=== PATIENT | female | born 1950 | race Caucasian/White ===

== ENCOUNTER 2016-09-20 12:29 | Inpatient (IN) | payer OTHER ==
[~2016-09-20] VITALS: Ht 172.7 cm; Wt 82.2 kg
[~2016-09-20 12:29] MED LIST: ATIVAN0.5 MG GT; ATROVENT 00.5 MG/2.5 IH; BUSPAR5 MG GT; CHILDREN'S ASPI81 M1 GT; CHILDREN'S160 MG/23 GT; COUMADIN,JANTOVE2 MG PO; COUMADIN4 MG PO; CYMBALTA30 MG GT; DIAMOX250 MG GT; DILAUDID2 MG PO; DILTIAZEM 24HR180 M1 PO; DULCOLAX10 MG PR; DUONEB 2.5-0.5 M3 ML AEROSOL; FERROUS SU220 MG/53 GT; FLEET ENEMA-AD118 ML PR; FLORANEX CHE1 TABLET GT; K-SOL20 MEQ/15 GT; KEPPRA100 MG/1 M GT; LANOXIN GT; LANOXIN,DIGIT0.25 MG PO; LASIX40 MG GT; LASIX40 MG PO; LEVAQUIN750 MG PO; LOPRESSOR25 MG GT; Lasix GT; METOPROLOL SUCC25 MG PO; MILK OF MAGN GT; NEURONTIN50 MG/ML GT; NORCO 5/3251 TABLET GT; PAROXETINE HCL40 MG PO; PAXIL40 MG GT; PERIDEX1 ML MM; PRILOSEC20 MG PO; PROMETHAZINE HC25 M1 GT; PULMICORT0.5 MG/21 IH; REQUIP0.25 MG GT; SENNA8.6 MG GT; TRAZODONE HCL50 MG GT; ZANTAC150 MG GT; ZOCOR20 MG GT
[2016-09-20 13:55] LABS: HEMATOCRIT 44.9 % (36.0-46.0); MCH 26.6 PG (29.0-34.0); MCHC 30.7 G/DL (30.0-36.0); MCV 86.7 FL (83-99); MEAN PLAT.VOLUME 9.6 uM^3 (9.5-12.4); PLATELET COUNT 342 K/uL (156-360); RBC DIS.WIDTH-CV 15.7 % (11.8-14.6); RBC DIS.WIDTH-SD 49.8 % (39-53); RED BLOOD COUNT 5.18 M/uL (3.80-5.20); WHITE BLOOD COUNT 7.6 K/uL (4.1-10.2)
[2016-09-20 14:00] LABS: INTER. NORMALIZED RATIO 1.2; PROTHROMBIN TIME 12.6 (9.2-11.2)
[2016-09-20 14:08] LABS: ANION GAP 4 MEQ/L (2-14); CHLORIDE 97 MEQ/L (99-109); POTASSIUM 4.1 MEQ/L (3.7-5.4); SAMPLE HEMOLYSIS CHECK 0; SAMPLE ICTERIC CHECK 0; SAMPLE LIPEMIA CHECK 0; SODIUM 136 MEQ/L (136-147)
[2016-09-20 14:13] LABS: GFR ESTIMATE (CALCULATED) > 59 mL/min/; GLUCOSE 116 mg/dL (70-99); UREA NITROGEN (BUN) 9 mg/dL (9-23)
[2016-09-20 14:17] LABS: TROP-I INTERPRETATION NEGATIVE; TROPONIN-I 0.01 ng/mL (0.0-0.30)
[2016-09-20] MEDS ORDERED: METOPROLOL TART25 MG PO (17:09)
[2016-09-20] MEDS ORDERED: PROAIR HFA8.5 GM IH (17:09)
[2016-09-20] MEDS ORDERED: ALBUTEROL2.5 MG/3 M IH (17:09)
[2016-09-20] MEDS ORDERED: LASIX20 MG PO (17:10)
[2016-09-20] MEDS ORDERED: BUSPAR5 MG PO (17:10)
[2016-09-20] MEDS ORDERED: DILTIAZEM 24HR180 MG PO (17:10)
[2016-09-20] MEDS ORDERED: K-DUR20 MEQ PO (17:11)
[2016-09-20] MEDS ORDERED: LO-DOSE ASPIRIN81 M1 PO (17:11)
[2016-09-20] MEDS ORDERED: PAROXETINE HCL10 MG PO (17:12)
[2016-09-20] MEDS ORDERED: PAXIL30 MG PO (17:12)
[2016-09-20] MEDS ORDERED: RANITIDINE HCL150 MG PO (17:13)
[2016-09-20] MEDS ORDERED: ZOCOR20 MG PO (17:13)
[2016-09-20] MEDS ORDERED: TYLENOL EXTRA500 MG PO (17:14)
[2016-09-21 06:33] LABS: EOSINOPHIL (%) 1.5 % (0-5); EOSINOPHIL COUNT 0.2 K/uL (0-0.3); HEMATOCRIT 43.2 % (36.0-46.0); IMMATURE GRANULOCYTE (%) 0.2 % (0.0-0.7); LYMPHOCYTE COUNT 1.2 K/uL (1.0-2.8); MCH 27.2 PG (29.0-34.0); MCHC 29.9 G/DL (30.0-36.0); MEAN PLAT.VOLUME 10.5 uM^3 (9.5-12.4); MONOCYTE (%) 12.5 % (3-12); MONOCYTE COUNT 1.2 K/uL (0-0.8); NEUTROPHIL (%) 73.2 % (45-76); NEUTROPHIL COUNT 7.1 K/uL (1.8-6.4); PLATELET COUNT 304 K/uL (156-360); RED BLOOD COUNT 4.75 M/uL (3.80-5.20); WHITE BLOOD COUNT 9.7 K/uL (4.1-10.2)
[2016-09-21 06:34] LABS: MCV 90.9 FL (83-99)
[2016-09-21 06:54] LABS: ANION GAP 5 MEQ/L (2-14); CHLORIDE 98 MEQ/L (99-109); GFR ESTIMATE (CALCULATED) > 59 mL/min/; GLUCOSE 106 mg/dL (70-99); POTASSIUM 3.9 MEQ/L (3.7-5.4); SAMPLE HEMOLYSIS CHECK 0; SAMPLE ICTERIC CHECK 0; SAMPLE LIPEMIA CHECK 0; SODIUM 138 MEQ/L (136-147); UREA NITROGEN (BUN) 11 mg/dL (9-23)
[2016-09-21 07:25] VITALS: BP 130/64
[2016-09-21 11:09] LABS: METH RESISTANT S AUREUS PCR POSITIVE (NEGATIVE)
[2016-09-21 11:10] LABS: PROBE CHECK PASS
[2016-09-21 12:13] LABS: POINT-OF-CARE METER ID UU13113831
[2016-09-21 12:24] VITALS: BP 109/62
[2016-09-21 15:43] VITALS: BP 116/61
[2016-09-21 17:14] LABS: POINT-OF-CARE METER ID UU14162513
[2016-09-21 18:06] LABS: BICARBONATE 38.9 mEq/L (22-26); CARBOXY HGB 3.6 % (0-5); METHEMOGLOBIN 1.5 % (0-1.5); PO2 66 mm Hg (80-100)
[2016-09-21 19:01] LABS: COMMENTS - BLOOD GASES A+C+; DEVICE NCH; O2 FLOW 8 L/MIN; PCO2 81 mm Hg (35-45); SITE RR; TOTAL RESP RATE 8 resp/min; pH 7.29 (7.35-7.45)
[2016-09-21 20:22] VITALS: BP 104/62
[2016-09-21 20:47] LABS: BASE EXCESS 11.2 mEq/L (-3 to +3); BICARBONATE 39.7 mEq/L (22-26); CARBOXY HGB 3.3 % (0-5); METHEMOGLOBIN 1.5 % (0-1.5); pH 7.35 (7.35-7.45)
[2016-09-21 20:49] LABS: COMMENTS - BLOOD GASES A+C+; CONTINUOUS POS AIRWAY PRESSURE 10 cm H2O; DEVICE BIPAP; O2 FLOW 3 L/MIN; PCO2 72 mm Hg (35-45); PO2 49 mm Hg (80-100); PRES. SUPPORT 15 CM/H2O; SITE RR
[2016-09-21 21:29] LABS: POINT-OF-CARE METER ID UU13113831
[2016-09-21 22:24] VITALS: BP 123/68
[2016-09-22] VITALS (18 sets, daily range): BP systolic 91–135; BP diastolic 48–77
[2016-09-22 00:13] LABS: BASE EXCESS 11.2 mEq/L (-3 to +3); BICARBONATE 39.7 mEq/L (22-26); CARBOXY HGB 3.6 % (0-5); COMMENTS - BLOOD GASES C+A+; CONTINUOUS POS AIRWAY PRESSURE 10 cm H2O; DEVICE BIPAP; METHEMOGLOBIN 1.5 % (0-1.5); O2 FLOW 4 L/MIN; PCO2 72 mm Hg (35-45); PO2 60 mm Hg (80-100); PRES. SUPPORT 15 CM/H2O; SITE RB; TOTAL RESP RATE 22 resp/min; pH 7.35 (7.35-7.45)
[2016-09-22 00:18] LABS: METH RESISTANT S AUREUS PCR POSITIVE (NEGATIVE)
[2016-09-22 00:20] LABS: PROBE CHECK PASS
[2016-09-22 00:42] LABS: CHLORIDE 101 mEq/L (99-109); POTASSIUM 3.9 mEq/L (3.7-5.4); SODIUM 142 mEq/L (136-147)
[2016-09-22 00:44] LABS: GLUCOSE 110 mg/dL (70-99)
[2016-09-22 00:45] LABS: ANION GAP 7 MEQ/L (2-14)
[2016-09-22 00:48] LABS: GFR ESTIMATE (CALCULATED) > 59 mL/min/; UREA NITROGEN (BUN) 10 mg/dL (9-23)
[2016-09-22 05:38] LABS: BASE EXCESS 11.8 mEq/L (-3 to +3); BICARBONATE 41.2 mEq/L (22-26); CARBOXY HGB 3.5 % (0-5); COMMENTS - BLOOD GASES C+; DEVICE NCHH; FI02 45 %; METHEMOGLOBIN 1.4 % (0-1.5); O2 FLOW 40 L/MIN; PCO2 80 mm Hg (35-45); PO2 67 mm Hg (80-100); SITE RB; pH 7.32 (7.35-7.45)
[2016-09-22 10:18] LABS: ANION GAP 9 MEQ/L (2-14); CHLORIDE 97 MEQ/L (99-109); POTASSIUM 3.8 MEQ/L (3.7-5.4); SAMPLE HEMOLYSIS CHECK 0; SAMPLE ICTERIC CHECK 0; SAMPLE LIPEMIA CHECK 0; SODIUM 142 MEQ/L (136-147)
[2016-09-22 10:24] LABS: GFR ESTIMATE (CALCULATED) > 59 mL/min/; GLUCOSE 109 mg/dL (70-99); UREA NITROGEN (BUN) 10 mg/dL (9-23)
[2016-09-22 11:01] LABS: EOSINOPHIL (%) 0.6 % (0-5); EOSINOPHIL COUNT 0.1 K/uL (0-0.3); HEMATOCRIT 43.1 % (36.0-46.0); IMMATURE GRANULOCYTE (%) 0.2 % (0.0-0.7); LYMPHOCYTE COUNT 0.9 K/uL (1.0-2.8); MCH 26.7 PG (29.0-34.0); MCHC 29.2 G/DL (30.0-36.0); MCV 91.3 FL (83-99); MEAN PLAT.VOLUME 10.1 uM^3 (9.5-12.4); MONOCYTE (%) 12.2 % (3-12); NEUTROPHIL (%) 75.7 % (45-76); NEUTROPHIL COUNT 6.3 K/uL (1.8-6.4); PLATELET COUNT 295 K/uL (156-360); RBC DIS.WIDTH-CV 15.9 % (11.8-14.6); RBC DIS.WIDTH-SD 53.4 % (39-53); RED BLOOD COUNT 4.72 M/uL (3.80-5.20); WHITE BLOOD COUNT 8.4 K/uL (4.1-10.2)
[2016-09-22 11:10] LABS: MAGNESIUM 1.8 mg/dl (1.3-2.7)
[2016-09-22 12:30] LABS: BASE EXCESS 15.8 mEq/L (-3 to +3); BICARBONATE 45.1 mEq/L (22-26); CARBOXY HGB 3.1 % (0-5); METHEMOGLOBIN 1.3 % (0-1.5); PCO2 78 mm Hg (35-45); pH 7.37 (7.35-7.45)
[2016-09-22 12:31] LABS: COMMENTS - BLOOD GASES C+; DEVICE 840 MASK; FI02 50 %; MODE SPONT NIPPV; PO2 89 mm Hg (80-100); PRES. SUPPORT 16 CM/H2O; SITE RB; TOTAL RESP RATE 24 resp/min
[2016-09-22 12:32] LABS: CONTINUOUS POS AIRWAY PRESSURE 10 cm H2O
[2016-09-22 13:42] LABS: POINT-OF-CARE METER ID UU13113803
[2016-09-22 18:13] LABS: POINT-OF-CARE METER ID UU13113803
[2016-09-22 20:46] LABS: BASE EXCESS 15.5 mEq/L (-3 to +3); BICARBONATE 44.5 mEq/L (22-26); CARBOXY HGB 2.2 % (0-5); COMMENTS - BLOOD GASES A+C+; DEVICE HHFNC; FI02 80 %; METHEMOGLOBIN 1.4 % (0-1.5); O2 FLOW 40 L/MIN; PCO2 77 mm Hg (35-45); PO2 150 mm Hg (80-100); SITE RR; TOTAL RESP RATE 21 resp/min; pH 7.37 (7.35-7.45)
[2016-09-23] VITALS (17 sets, daily range): BP systolic 0–140; BP diastolic 0–79
[2016-09-23 00:39] LABS: POINT-OF-CARE METER ID UU13113803
[2016-09-23 05:13] LABS: POINT-OF-CARE METER ID UU13113803
[2016-09-23 05:38] LABS: EOSINOPHIL (%) 0 % (0-5); HEMATOCRIT 41.7 % (36.0-46.0); IMMATURE GRANULOCYTE (%) 0.1 % (0.0-0.7); LYMPHOCYTE COUNT 0.5 K/uL (1.0-2.8); MCH 26.9 PG (29.0-34.0); MCHC 29.7 G/DL (30.0-36.0); MCV 90.5 FL (83-99); MEAN PLAT.VOLUME 10.6 uM^3 (9.5-12.4); MONOCYTE COUNT 0.3 K/uL (0-0.8); NEUTROPHIL (%) 88.5 % (45-76); NEUTROPHIL COUNT 6.4 K/uL (1.8-6.4); PLATELET COUNT 315 K/uL (156-360); RBC DIS.WIDTH-CV 15.9 % (11.8-14.6); RBC DIS.WIDTH-SD 52.1 % (39-53); RED BLOOD COUNT 4.61 M/uL (3.80-5.20); WHITE BLOOD COUNT 7.3 K/uL (4.1-10.2)
[2016-09-23 06:11] LABS: ANION GAP 7 MEQ/L (2-14); CHLORIDE 93 MEQ/L (99-109); GFR ESTIMATE (CALCULATED) > 59 mL/min/; GLUCOSE 152 mg/dL (70-99); POTASSIUM 4.1 MEQ/L (3.7-5.4); SAMPLE HEMOLYSIS CHECK 0; SAMPLE ICTERIC CHECK 0; SAMPLE LIPEMIA CHECK 0; SODIUM 140 MEQ/L (136-147)
[2016-09-23 06:23] LABS: UREA NITROGEN (BUN) 21 mg/dL (9-23)
[2016-09-23 10:40] LABS: MAGNESIUM 2.3 mg/dl (1.3-2.7)
[2016-09-23 12:43] LABS: POINT-OF-CARE METER ID UU14162636
[2016-09-23 17:43] LABS: POINT-OF-CARE METER ID UU13113803
[2016-09-24] VITALS (11 sets, daily range): BP systolic 103–144; BP diastolic 58–78
[2016-09-24 00:48] LABS: POINT-OF-CARE METER ID UU13113803
[2016-09-24 05:21] LABS: POINT-OF-CARE METER ID UU13113731
[2016-09-25] VITALS (12 sets, daily range): BP systolic 107–140; BP diastolic 60–74
[2016-09-25 05:44] LABS: HEMATOCRIT 42.2 % (36.0-46.0); MCH 27.2 PG (29.0-34.0); MCHC 29.6 G/DL (30.0-36.0); MCV 91.9 FL (83-99); MEAN PLAT.VOLUME 10.6 uM^3 (9.5-12.4); PLATELET COUNT 272 K/uL (156-360); RBC DIS.WIDTH-CV 16.1 % (11.8-14.6); RBC DIS.WIDTH-SD 53.7 % (39-53); RED BLOOD COUNT 4.59 M/uL (3.80-5.20); WHITE BLOOD COUNT 9.1 K/uL (4.1-10.2)
[2016-09-25 06:04] LABS: EOSINOPHIL (%) 0 % (0-5); IMMATURE GRANULOCYTE (%) 0.2 % (0.0-0.7); LYMPHOCYTE COUNT 0.6 K/uL (1.0-2.8); MONOCYTE (%) 2.6 % (3-12); MONOCYTE COUNT 0.2 K/uL (0-0.8); NEUTROPHIL (%) 90.6 % (45-76); NEUTROPHIL COUNT 8.3 K/uL (1.8-6.4)
[2016-09-25 06:26] LABS: ANION GAP ND MEQ/L (2-14); CHLORIDE 93 MEQ/L (99-109); GFR ESTIMATE (CALCULATED) > 59 mL/min/; SAMPLE HEMOLYSIS CHECK 0; SAMPLE ICTERIC CHECK 0; SAMPLE LIPEMIA CHECK 0; SODIUM 143 MEQ/L (136-147)
[2016-09-25 06:27] LABS: CARBON DIOXIDE (BICARBONATE) > 40.0 MEQ/L (20-31); GLUCOSE 253 mg/dL (70-99); UREA NITROGEN (BUN) 33 mg/dL (9-23)
[2016-09-25 08:26] LABS: BASE EXCESS 23.3 mEq/L (-3 to +3); BICARBONATE 52.1 mEq/L (22-26); CARBOXY HGB 2.3 % (0-5); COMMENTS - BLOOD GASES NEG A+C+; DEVICE HFNC; METHEMOGLOBIN 1.3 % (0-1.5); O2 FLOW 6 L/MIN; PCO2 75 mm Hg (35-45); PO2 77 mm Hg (80-100); SITE LR; pH 7.45 (7.35-7.45)
[2016-09-25 08:27] LABS: TOTAL RESP RATE 18 resp/min
[2016-09-25 11:31] LABS: POINT-OF-CARE METER ID UU13113803
[2016-09-25 16:42] LABS: POINT-OF-CARE METER ID UU13113803
[2016-09-25 23:32] LABS: POINT-OF-CARE USER ID PHATLC
[2016-09-26] VITALS (7 sets, daily range): BP systolic 113–134; BP diastolic 61–80
[2016-09-26 07:36] LABS: ANION GAP ND MEQ/L (2-14); CHLORIDE 91 MEQ/L (99-109); GFR ESTIMATE (CALCULATED) > 59 mL/min/; GLUCOSE 165 mg/dL (70-99); POTASSIUM 3.7 MEQ/L (3.7-5.4); SAMPLE HEMOLYSIS CHECK 0; SAMPLE ICTERIC CHECK 0; SAMPLE LIPEMIA CHECK 0; SODIUM 142 MEQ/L (136-147); UREA NITROGEN (BUN) 30 mg/dL (9-23)
[2016-09-26 07:38] LABS: CARBON DIOXIDE (BICARBONATE) > 40.0 MEQ/L (20-31)
[2016-09-26 07:47] LABS: EOSINOPHIL (%) 0 % (0-5); HEMATOCRIT 43.4 % (36.0-46.0); IMMATURE GRANULOCYTE (%) 0.1 % (0.0-0.7); LYMPHOCYTE COUNT 0.6 K/uL (1.0-2.8); MCH 27.2 PG (29.0-34.0); MCHC 29.7 G/DL (30.0-36.0); MCV 91.6 FL (83-99); MEAN PLAT.VOLUME 10.8 uM^3 (9.5-12.4); MONOCYTE (%) 7.6 % (3-12); MONOCYTE COUNT 0.7 K/uL (0-0.8); NEUTROPHIL (%) 85.7 % (45-76); NEUTROPHIL COUNT 7.5 K/uL (1.8-6.4); PLATELET COUNT 241 K/uL (156-360); RBC DIS.WIDTH-CV 15.9 % (11.8-14.6); RBC DIS.WIDTH-SD 52.9 % (39-53); RED BLOOD COUNT 4.74 M/uL (3.80-5.20); WHITE BLOOD COUNT 8.7 K/uL (4.1-10.2)
[2016-09-26 15:45] LABS: POINT-OF-CARE METER ID UU13113698
[2016-09-27] VITALS (7 sets, daily range): BP systolic 114–148; BP diastolic 64–84
[2016-09-27 07:34] LABS: ALKALINE PHOSPHATASE 103 IU/L (3-129); ANION GAP ND MEQ/L (2-14); CHLORIDE 90 MEQ/L (99-109); GFR ESTIMATE (CALCULATED) > 59 mL/min/; GLUCOSE 127 mg/dL (70-99); POTASSIUM 3.9 MEQ/L (3.7-5.4); SAMPLE HEMOLYSIS CHECK 0; SAMPLE ICTERIC CHECK 0; SAMPLE LIPEMIA CHECK 0; SODIUM 140 MEQ/L (136-147); TOTAL BILIRUBIN 1.1 MG/DL (0.0-1.0); UREA NITROGEN (BUN) 25 mg/dL (9-23)
[2016-09-27 07:35] LABS: CARBON DIOXIDE (BICARBONATE) > 40.0 MEQ/L (20-31); EOSINOPHIL (%) 0.1 % (0-5); HEMATOCRIT 44.9 % (36.0-46.0); IMMATURE GRANULOCYTE (%) 0.2 % (0.0-0.7); LYMPHOCYTE COUNT 1.9 K/uL (1.0-2.8); MCH 26.4 PG (29.0-34.0); MCHC 29.2 G/DL (30.0-36.0); MCV 90.3 FL (83-99); MEAN PLAT.VOLUME 10.6 uM^3 (9.5-12.4); MONOCYTE (%) 4.8 % (3-12); MONOCYTE COUNT 0.6 K/uL (0-0.8); NEUTROPHIL (%) 78.6 % (45-76); NEUTROPHIL COUNT 9.1 K/uL (1.8-6.4); PLATELET COUNT 252 K/uL (156-360); RBC DIS.WIDTH-CV 15.8 % (11.8-14.6); RED BLOOD COUNT 4.97 M/uL (3.80-5.20)
[2016-09-27 07:38] LABS: WHITE BLOOD COUNT 11.6 K/uL (4.1-10.2)
[2016-09-27 08:08] LABS: POINT-OF-CARE METER ID UU13113698
[2016-09-27 11:42] LABS: POINT-OF-CARE METER ID UU13113781
[2016-09-27 16:21] LABS: POINT-OF-CARE METER ID UU14174216
[2016-09-27 21:21] LABS: POINT-OF-CARE METER ID UU14174216
[2016-09-28 03:35] VITALS: BP 114/68
[2016-09-28 07:36] LABS: POINT-OF-CARE METER ID UU13113781
[2016-09-28] MEDS ORDERED: PREDNISONE5 MG PO (08:09)
[2016-09-28] MEDS ORDERED: OXYGEN MC (08:09)
[2016-09-28 09:00] VITALS: BP 128/51
[2016-09-28 11:22] LABS: POINT-OF-CARE METER ID UU13113781
== END 2016-09-28 14:56 | disposition home health service (06) | DRG 189 ==
LOC: EME 12:29 → 5WEST 20:08 → EDOF 20:08 → 5WEST 09-21 07:22 → 4WEST 09-21 08:42 → 5WEST 09-21 08:42 → 4EAST 09-21 08:42 → 5WEST 09-21 18:24 → 4WEST 09-21 22:24 → 4EAST 09-26 02:11
PROVIDERS: Emergency Medicine; Hospitalist; Internal Medicine; Internal Medicine Critical Care Medicine; Internal Medicine Nephrology; Internal Medicine Pulmonary Disease; Nurse Practitioner Adult Health; Pediatrics; Physician Assistant
PROC: 8E0ZXY6 Isolation (ICD-10-PCS; principal; 2016-09-21)
PROC: 5A09357 Assistance with Respiratory Ventilation, Less than 24 Consecutive Hours, Continuous Positive Airway Pressure (ICD-10-PCS; 2016-09-22)
DX: J96.21 Acute and chronic respiratory failure with hypoxia (principal); I50.33 Acute on chronic diastolic (congestive) heart failure; J15.0 Pneumonia due to Klebsiella pneumoniae; J44.1 Chronic obstructive pulmonary disease with (acute) exacerbation; J90 Pleural effusion, not elsewhere classified; I42.0 Dilated cardiomyopathy; J98.11 Atelectasis; E87.2 Acidosis; I48.2 Chronic atrial fibrillation; K21.9 Gastro-esophageal reflux disease without esophagitis; I35.0 Nonrheumatic aortic (valve) stenosis; F17.210 Nicotine dependence, cigarettes, uncomplicated; Z99.81 Dependence on supplemental oxygen; F41.9 Anxiety disorder, unspecified; G31.84 Mild cognitive impairment of uncertain or unknown etiology; B00.1 Herpesviral vesicular dermatitis; J96.22 Acute and chronic respiratory failure with hypercapnia; E66.9 Obesity, unspecified; I27.2 Other secondary pulmonary hypertension; G40.909 Epilepsy, unspecified, not intractable, without status epilepticus; F32.9 Major depressive disorder, single episode, unspecified; R00.0 Tachycardia, unspecified; I89.0 Lymphedema, not elsewhere classified; B95.62 Methicillin resistant Staphylococcus aureus infection as the cause of diseases classified elsewhere; Z68.30 Body mass index [BMI] 30.0-30.9, adult; Z88.2 Allergy status to sulfonamides; Z88.0 Allergy status to penicillin; Z79.01 Long term (current) use of anticoagulants; Z83.6 Family history of other diseases of the respiratory system; Z82.49 Family history of ischemic heart disease and other diseases of the circulatory system
CPT/HCPCS: 36600; 71010; 80048; 80048 91; 80053; 81003; 82803; 82948; 83735; 83880; 84100; 84484; 85025; 85027; 85610; 87040; 87070; 87077; 87086; 87106; 87147; 87186; 87205; 87449; 87641; 93005; 93306; 93970; 94002; 94640; 94640 76; 94644; 94660; 94760; 94799; 97530 GO; 97530 GP; 99202; 99281; 99285; G0378; G8978 GP CK; G8979 GP CI; G8987 GO CJ; G8988 CI; J0456; J0692; J0696; J1170; J1650; J1815; J1940; J2185; J2920; J2930; J3370; J3475; J7050; J7512; S0028

== ENCOUNTER 2016-10-27 09:04 | Emergency (ER) | payer OTHER ==
[~2016-10-27] VITALS: Ht 162.6 cm; Wt 88.6 kg
[~2016-10-27 09:04] MED LIST changes: +ALBUTEROL2.5 MG/3 M IH; +BUSPAR5 MG PO; +DILTIAZEM 24HR180 MG PO; +K-DUR20 MEQ PO; +LASIX20 MG PO; +LO-DOSE ASPIRIN81 M1 PO; +METOPROLOL TART25 MG PO; +OXYGEN MC; +PAROXETINE HCL10 MG PO; +PAXIL30 MG PO; +PREDNISONE5 MG PO; +PROAIR HFA8.5 GM IH; +RANITIDINE HCL150 MG PO; +TYLENOL EXTRA500 MG PO; +ZOCOR20 MG PO
[2016-10-27 09:39] LABS: POINT-OF-CARE METER ID UU13113702
[2016-10-27 09:48] LABS: VENOUS PCO2 109 mm Hg (41-51)
[2016-10-27 09:50] LABS: CARBON DIOXIDE (BICARBONATE) > 40.0 MEQ/L (20-31)
[2016-10-27 09:51] LABS: HEMATOCRIT 46.3 % (36.0-46.0); MCH 27.1 PG (29.0-34.0); MCHC 28.9 G/DL (30.0-36.0); MCV 93.7 FL (83-99); MEAN PLAT.VOLUME 10.1 uM^3 (9.5-12.4); PLATELET COUNT 268 K/uL (156-360); RBC DIS.WIDTH-CV 16.9 % (11.8-14.6); RBC DIS.WIDTH-SD 55.9 % (39-53); RED BLOOD COUNT 4.94 M/uL (3.80-5.20); WHITE BLOOD COUNT 9.2 K/uL (4.1-10.2)
[2016-10-27 10:16] LABS: ANION GAP 6 MEQ/L (2-14); CHLORIDE 101 MEQ/L (99-109); POTASSIUM 4.5 MEQ/L (3.7-5.4); SAMPLE HEMOLYSIS CHECK 0; SAMPLE ICTERIC CHECK 0; SAMPLE LIPEMIA CHECK 0; SODIUM 144 MEQ/L (136-147)
[2016-10-27 10:21] LABS: GFR ESTIMATE (CALCULATED) > 59 mL/min/; GLUCOSE 186 mg/dL (70-99); UREA NITROGEN (BUN) 14 mg/dL (9-23)
[2016-10-27 10:29] LABS: TROP-I INTERPRETATION NEGATIVE; TROPONIN-I < 0.01 ng/mL (0.0-0.30)
[2016-10-27 11:53] LABS: BASE EXCESS 9.9 mEq/L (-3 to +3); BICARBONATE 40.4 mEq/L (22-26); CARBOXY HGB 3.7 % (0-5); PO2 71 mm Hg (80-100)
[2016-10-27 11:54] LABS: COMMENTS - BLOOD GASES A+C+; PCO2 88 mm Hg (35-45); SITE RR; pH 7.27 (7.35-7.45)
[2016-10-27 11:55] LABS: DEVICE VENT; FI02 50 %; PEEP 5 CM/H20; PRES. SUPPORT 15 CM/H2O; TIDAL VOLUME 430 ML; TOTAL RESP RATE 17 resp/min
[2016-10-27 13:51] LABS: BASE EXCESS 9.7 mEq/L (-3 to +3); BICARBONATE 40.8 mEq/L (22-26); CARBOXY HGB 3.5 % (0-5); COMMENTS - BLOOD GASES A+C+; O2 FLOW 30 L/MIN; PCO2 93 mm Hg (35-45); PO2 62 mm Hg (80-100); SITE LR; pH 7.25 (7.35-7.45)
[2016-10-27 13:52] LABS: DEVICE HHFNC; FI02 60 %; TOTAL RESP RATE 22 resp/min
[2016-10-27 14:00] VITALS: BP 101/67
== END 2016-10-27 15:57 | disposition short-term general hospital (02) ==
LOC: EME → EDBD 09:04 → EME 15:57
PROVIDERS: Emergency Medicine
DX: J96.02 Acute respiratory failure with hypercapnia (principal); J44.9 Chronic obstructive pulmonary disease, unspecified; Z99.81 Dependence on supplemental oxygen; E11.9 Type 2 diabetes mellitus without complications; Z87.891 Personal history of nicotine dependence; K21.9 Gastro-esophageal reflux disease without esophagitis; Z79.82 Long term (current) use of aspirin
CPT/HCPCS: 36600; 71010; 71020; 80048; 82803; 82948; 83605; 83880; 84484; 85027; 87040; 93005; 94002; 94640; 99281; 99285; J1956; J2270; J2405; J2930; J7644

== ENCOUNTER 2017-01-24 14:06 | Inpatient (IN) | payer OTHER ==
[~2017-01-24] VITALS: Ht 170.2 cm; Wt 93.0 kg
[2017-01-24] MEDS ORDERED: ELIQUIS5 MG PO (14:26)
[2017-01-24] MEDS ORDERED: ILEVRO1.7 ML LEFT EYE (14:28)
[2017-01-24] MEDS ORDERED: PRED FORTE100 DROP/5 LEFT EYE (14:29)
[2017-01-24 14:44] LABS: EOSINOPHIL (%) 3.9 % (0-5); EOSINOPHIL COUNT 0.2 K/uL (0-0.3); HEMATOCRIT 36.7 % (36.0-46.0); IMMATURE GRANULOCYTE (%) 0.2 % (0.0-0.7); INSTRUMENT ABS NEUTROPHIL CT 3.9 K/uL; LYMPHOCYTE COUNT 0.9 K/uL (1.0-2.8); MCH 26.6 PG (29.0-34.0); MCHC 28.9 G/DL (30.0-36.0); MCV 92.2 FL (83-99); MEAN PLAT.VOLUME 10.2 uM^3 (9.5-12.4); MONOCYTE (%) 10.5 % (3-12); MONOCYTE COUNT 0.6 K/uL (0-0.8); NEUTROPHIL (%) 69.3 % (45-76); NEUTROPHIL COUNT 3.9 K/uL (1.8-6.4); PLATELET COUNT 207 K/uL (156-360); RBC DIS.WIDTH-CV 15.7 % (11.8-14.6); RBC DIS.WIDTH-SD 53.3 % (39-53); RED BLOOD COUNT 3.98 M/uL (3.80-5.20); WHITE BLOOD COUNT 5.6 K/uL (4.1-10.2)
[2017-01-24 14:53] LABS: CHLORIDE 101 mEq/L (99-109); SODIUM 144 mEq/L (136-147)
[2017-01-24 14:55] LABS: GLUCOSE 144 mg/dL (70-99)
[2017-01-24 14:56] LABS: ANION GAP 8 MEQ/L (2-14)
[2017-01-24 14:59] LABS: GFR ESTIMATE (CALCULATED) > 59 mL/min/; UREA NITROGEN (BUN) 10 mg/dL (9-23)
[2017-01-24 15:05] LABS: TROP-I INTERPRETATION NEGATIVE; TROPONIN-I 0.02 ng/mL (0.0-0.30)
[2017-01-24] MEDS ORDERED: PROVENTIL,2.5 MG/3 M IH (16:18)
[2017-01-24] MEDS ORDERED: PAXIL40 MG PO (16:22)
[2017-01-24] MEDS ORDERED: PAROXETINE HCL10 MG PO (16:23)
[2017-01-24] MEDS ORDERED: DIGOXIN250 MCG PO (16:26)
[2017-01-24] MEDS ORDERED: AMIODARONE HCL200 MG PO (16:26)
[2017-01-24] MEDS ORDERED: TRAVATAN Z5 ML LEFT EYE (16:27)
[2017-01-24] MEDS ORDERED: ZYPREXA2.5 MG PO (16:27)
[2017-01-24 20:19] VITALS: BP 92/56
[2017-01-24 21:50] LABS: D-DIMER ELISA 1.37 mg/L FEU (< 0.57)
[2017-01-24 23:00] LABS: METH RESISTANT S AUREUS PCR POSITIVE (NEGATIVE)
[2017-01-24 23:05] LABS: PROBE CHECK PASS
[2017-01-25 04:00] VITALS: BP 136/72
[2017-01-25 06:07] LABS: HEMATOCRIT 35.5 % (36.0-46.0); MCH 26.9 PG (29.0-34.0); MCHC 29.3 G/DL (30.0-36.0); MCV 91.7 FL (83-99); MEAN PLAT.VOLUME 10.5 uM^3 (9.5-12.4); PLATELET COUNT 213 K/uL (156-360); RBC DIS.WIDTH-CV 15.8 % (11.8-14.6); RBC DIS.WIDTH-SD 53.5 % (39-53); RED BLOOD COUNT 3.87 M/uL (3.80-5.20); WHITE BLOOD COUNT 5.9 K/uL (4.1-10.2)
[2017-01-25 06:40] LABS: ALKALINE PHOSPHATASE 123 IU/L (3-129); ANION GAP 6 MEQ/L (2-14); CHLORIDE 100 MEQ/L (99-109); GFR ESTIMATE (CALCULATED) > 59 mL/min/; GLUCOSE 109 mg/dL (70-99); POTASSIUM 3.5 MEQ/L (3.7-5.4); SAMPLE HEMOLYSIS CHECK 0; SAMPLE ICTERIC CHECK 0; SAMPLE LIPEMIA CHECK 0; SODIUM 144 MEQ/L (136-147); TOTAL BILIRUBIN 0.8 MG/DL (0.0-1.0); UREA NITROGEN (BUN) 11 mg/dL (9-23)
[2017-01-25 07:30] VITALS: BP 97/55
[2017-01-25 12:40] VITALS: BP 84/52
[2017-01-25 17:12] VITALS: BP 90/55
[2017-01-25 20:00] VITALS: BP 96/60
[2017-01-25 23:35] VITALS: BP 100/55
[2017-01-26 04:00] VITALS: BP 104/54
[2017-01-26 07:15] VITALS: BP 95/51
[2017-01-26 08:03] LABS: EOSINOPHIL (%) 3.3 % (0-5); EOSINOPHIL COUNT 0.2 K/uL (0-0.3); HEMATOCRIT 36.9 % (36.0-46.0); IMMATURE GRANULOCYTE (%) 0.2 % (0.0-0.7); INSTRUMENT ABS NEUTROPHIL CT 3.9 K/uL; LYMPHOCYTE COUNT 0.9 K/uL (1.0-2.8); MCH 26.8 PG (29.0-34.0); MCHC 29.3 G/DL (30.0-36.0); MCV 91.6 FL (83-99); MEAN PLAT.VOLUME 10.4 uM^3 (9.5-12.4); MONOCYTE (%) 12.8 % (3-12); MONOCYTE COUNT 0.7 K/uL (0-0.8); NEUTROPHIL COUNT 3.9 K/uL (1.8-6.4); PLATELET COUNT 212 K/uL (156-360); RBC DIS.WIDTH-CV 15.8 % (11.8-14.6); RBC DIS.WIDTH-SD 53.1 % (39-53); RED BLOOD COUNT 4.03 M/uL (3.80-5.20); WHITE BLOOD COUNT 5.7 K/uL (4.1-10.2)
[2017-01-26 08:30] LABS: ALKALINE PHOSPHATASE 119 IU/L (3-129); ANION GAP 6 MEQ/L (2-14); CHLORIDE 100 MEQ/L (99-109); GFR ESTIMATE (CALCULATED) > 59 mL/min/; GLUCOSE 104 mg/dL (70-99); POTASSIUM 3.8 MEQ/L (3.7-5.4); SAMPLE HEMOLYSIS CHECK 0; SAMPLE ICTERIC CHECK 0; SAMPLE LIPEMIA CHECK 0; SODIUM 143 MEQ/L (136-147); UREA NITROGEN (BUN) 12 mg/dL (9-23)
[2017-01-26 08:31] LABS: TOTAL BILIRUBIN 1.3 MG/DL (0.0-1.0)
[2017-01-26 11:00] VITALS: BP 90/53
[2017-01-26 12:10] LABS: MAGNESIUM 1.9 mg/dl (1.3-2.7)
== END 2017-01-26 14:38 | disposition short-term general hospital (02) | DRG 306 ==
LOC: EME → EDBD 14:06 → EME 14:06 → 4EAST 16:00 → EDOF 16:00 → 4EAST 16:00 → EDOF 18:32 → 4EAST 19:28
PROVIDERS: Emergency Medicine; Nurse Practitioner Adult Health; Pediatrics
DX: I35.0 Nonrheumatic aortic (valve) stenosis (principal); J96.21 Acute and chronic respiratory failure with hypoxia; I47.2 Ventricular tachycardia; I50.33 Acute on chronic diastolic (congestive) heart failure; J90 Pleural effusion, not elsewhere classified; J44.1 Chronic obstructive pulmonary disease with (acute) exacerbation; L03.115 Cellulitis of right lower limb; I27.2 Other secondary pulmonary hypertension; I48.2 Chronic atrial fibrillation; E87.6 Hypokalemia; Z79.01 Long term (current) use of anticoagulants; I25.10 Atherosclerotic heart disease of native coronary artery without angina pectoris; R60.0 Localized edema; I87.8 Other specified disorders of veins; J98.11 Atelectasis; K21.9 Gastro-esophageal reflux disease without esophagitis; Z98.2 Presence of cerebrospinal fluid drainage device; F41.9 Anxiety disorder, unspecified; F17.210 Nicotine dependence, cigarettes, uncomplicated; Z99.81 Dependence on supplemental oxygen; L03.116 Cellulitis of left lower limb
CPT/HCPCS: 71020; 80048; 80053; 80202; 83735; 83880; 84484; 85025; 85027; 85379; 87641; 93005; 94640; 94640 76; 94760; 94799; 99202; 99281; 99285; J1160; J1940; J2060; J3370

== ENCOUNTER 2017-03-05 09:44 | Inpatient (IN) | payer OTHER, MEDICARE ==
[~2017-03-05] VITALS: Ht 170.2 cm; Wt 95.1 kg
[~2017-03-05 09:44] MED LIST changes: +AMIODARONE HCL200 MG PO; +DIGOXIN250 MCG PO; +ELIQUIS5 MG PO; +ILEVRO1.7 ML LEFT EYE; +PAXIL40 MG PO; +PRED FORTE100 DROP/5 LEFT EYE; +PROVENTIL,2.5 MG/3 M IH; +TRAVATAN Z5 ML LEFT EYE; +ZYPREXA2.5 MG PO
[2017-03-05 10:40] LABS: EOSINOPHIL (%) 4.8 % (0-5); EOSINOPHIL COUNT 0.3 K/uL (0-0.3); HEMATOCRIT 31.7 % (36.0-46.0); IMMATURE GRANULOCYTE (%) 0.4 % (0.0-0.7); INSTRUMENT ABS NEUTROPHIL CT 3.7 K/uL; LYMPHOCYTE COUNT 0.7 K/uL (1.0-2.8); MCH 26.1 PG (29.0-34.0); MCHC 28.7 G/DL (30.0-36.0); MCV 90.8 FL (83-99); MEAN PLAT.VOLUME 10.2 uM^3 (9.5-12.4); MONOCYTE (%) 10.6 % (3-12); MONOCYTE COUNT 0.6 K/uL (0-0.8); NEUTROPHIL (%) 69.9 % (45-76); NEUTROPHIL COUNT 3.7 K/uL (1.8-6.4); PLATELET COUNT 233 K/uL (156-360); RBC DIS.WIDTH-CV 17.7 % (11.8-14.6); RED BLOOD COUNT 3.49 M/uL (3.80-5.20); WHITE BLOOD COUNT 5.3 K/uL (4.1-10.2)
[2017-03-05 10:54] LABS: INTER. NORMALIZED RATIO 1.7; PROTHROMBIN TIME 17.1 (9.2-11.2); PTT 22.6 (25-32)
[2017-03-05 10:55] LABS: CHLORIDE 96 mEq/L (99-109); POTASSIUM 3.5 mEq/L (3.7-5.4); SODIUM 139 mEq/L (136-147)
[2017-03-05 10:57] LABS: GLUCOSE 89 mg/dL (70-99)
[2017-03-05 10:58] LABS: ANION GAP 7 MEQ/L (2-14)
[2017-03-05 11:01] LABS: GFR ESTIMATE (CALCULATED) > 59 mL/min/
[2017-03-05 11:02] LABS: UREA NITROGEN (BUN) 12 mg/dL (9-23)
[2017-03-05 11:05] LABS: TROP-I INTERPRETATION NEGATIVE; TROPONIN-I < 0.01 ng/mL (0.0-0.30)
[2017-03-05 14:03] LABS: DIGOXIN < 0.3 ng/mL (0.8-2.0)
[2017-03-05] MEDS ORDERED: DUONEB 2.5-0.5 M3 ML AEROSOL (14:25)
[2017-03-05] MEDS ORDERED: LASIX40 MG PO (14:26)
[2017-03-05] MEDS ORDERED: BUSPAR5 MG PO (14:28)
[2017-03-05] MEDS ORDERED: METOPROLOL SUCC25 MG PO (14:28)
[2017-03-05] MEDS ORDERED: ADVAIR 250/501 DISK IH (14:28)
[2017-03-05] MEDS ORDERED: ASPIR-LOW81 MG PO (14:28)
[2017-03-05] MEDS ORDERED: SPIRIVA RESPIMAT4 G1 IH (14:29)
[2017-03-05] MEDS ORDERED: HALOPERIDOL0.5 MG PO (14:29)
[2017-03-05 17:15] VITALS: BP 97/66
== END 2017-03-05 16:30 | disposition short-term general hospital (02) | DRG 292 ==
LOC: EME 09:44 → EDOF 12:14
PROVIDERS: Emergency Medicine
DX: I50.1 Left ventricular failure, unspecified (principal); I35.0 Nonrheumatic aortic (valve) stenosis; J44.9 Chronic obstructive pulmonary disease, unspecified; K21.9 Gastro-esophageal reflux disease without esophagitis; E11.9 Type 2 diabetes mellitus without complications; R09.02 Hypoxemia; I51.7 Cardiomegaly; J90 Pleural effusion, not elsewhere classified; R94.31 Abnormal electrocardiogram [ECG] [EKG]; J98.11 Atelectasis; I44.4 Left anterior fascicular block; I48.91 Unspecified atrial fibrillation; Z99.81 Dependence on supplemental oxygen; Z87.891 Personal history of nicotine dependence; Z88.0 Allergy status to penicillin; Z88.2 Allergy status to sulfonamides
CPT/HCPCS: 71010; 76937; 80048; 80162; 83880; 84484; 85025; 85610; 85730; 93005; 94640; 94640 76; 94799; 99202; 99281; 99285; C1753; J1160; J1940

== ENCOUNTER 2018-05-01 16:46 | Emergency (ER) | payer OTHER, MEDICARE ==
[~2018-05-01] VITALS: Ht 170.2 cm; Wt 88.7 kg
[~2018-05-01 16:46] MED LIST changes: +ADVAIR 250/501 DISK IH; +ASPIR-LOW81 MG PO; +HALOPERIDOL0.5 MG PO; +SPIRIVA RESPIMAT4 G1 IH
[2018-05-01 18:36] LABS: HEMATOCRIT 35.7 % (36.0-46.0); MCH 29.6 PG (29.0-34.0); MCHC 30.8 G/DL (30.0-36.0); PLATELET COUNT 161 K/uL (156-360); RBC DIS.WIDTH-CV 14.6 % (11.8-14.6); RBC DIS.WIDTH-SD 51.2 % (39-53); RED BLOOD COUNT 3.72 M/uL (3.80-5.20)
[2018-05-01 18:39] LABS: VENOUS PCO2 79 mm Hg (41-51)
[2018-05-01 18:43] LABS: CARBON DIOXIDE (BICARBONATE) > 40.0 MEQ/L (20-31)
[2018-05-01 18:48] LABS: CHLORIDE 95 mEq/L (99-109); POTASSIUM 3.4 mEq/L (3.7-5.4); SODIUM 144 mEq/L (136-147)
[2018-05-01 18:53] LABS: CREATININE 0.9 mg/dL (0.6-1.3); GFR ESTIMATE (CALCULATED) > 59 mL/min/
[2018-05-01 18:54] LABS: UREA NITROGEN (BUN) 18 mg/dL (9-23)
[2018-05-01 18:55] LABS: GLUCOSE 107 mg/dL (70-99)
[2018-05-01 20:53] VITALS: BP 100/62
== END 2018-05-01 21:13 | disposition home or self-care (01) ==
LOC: EME 16:46
PROVIDERS: Emergency Medicine
DX: J44.9 Chronic obstructive pulmonary disease, unspecified (principal); E11.9 Type 2 diabetes mellitus without complications; K21.9 Gastro-esophageal reflux disease without esophagitis; Z79.82 Long term (current) use of aspirin; Z86.69 Personal history of other diseases of the nervous system and sense organs; Z88.2 Allergy status to sulfonamides; Z88.0 Allergy status to penicillin; Z87.891 Personal history of nicotine dependence
CPT/HCPCS: 71046; 80048 91; 82803; 85027; 99281; 99284